=== PATIENT | male | born 1985 | race African-American/Black ===

== ENCOUNTER 2016-08-27 16:45 | Emergency (ER) | payer MEDICARE, OTHER ==
[~2016-08-27] VITALS: Ht 175.3 cm; Wt 79.4 kg
[2016-08-27 16:45] VITALS: BP 141/97
--- NOTE | 2016-08-27 17:14 | Emergency Room Report ---
History of Present Illness General Chief Complaint: Vomiting Source: Patient, EMS Present Illness HPI Patient is a 31-year-old male presented after increased of burning type abdominal pain. The patient reported having had increased nausea as well as vomiting. He was having difficulty had a keeping down food. Patient stated this began earlier in the day. The patient denied any fever. He denied any diarrhea.The patient had been given a pain pill by his girlfriend and subsequently began vomiting. Allergies: Coded Allergies: No Known Allergies (Unverified , 08/27/16) Patient History Past Medical History: see triage record Reviewed Nursing Documentation: PMH: Agreed, PSxH: Agreed Nursing Documentation-PMH Past Medical History: No Stated History Review of Systems All Other Systems: negative except mentioned in HPI Physical Exam Vital Signs Date Time Temp Pulse Resp B/P Pulse Ox O2 Delivery O2 Flow Rate FiO2 08/27/16 16:32 80 18 135/80 98 Room Air 08/27/16 16:45 97.5 Sp02 EP Interpretation: reviewed, normal General Appearance: normal inspection, well appearing, no apparent distress, alert, GCS 15, non-toxic Head: atraumatic ENT: normal ENT inspection, hearing grossly normal, normal voice Neck: normal inspection, full range of motion, supple, no bony tend Respiratory: normal inspection, lungs clear, normal breath sounds, no respiratory distress, no retraction, no wheezing Cardiovascular #1: regular rate, rhythm, no edema Gastrointestinal: normal inspection, normal bowel sounds, non tender, soft, no guarding, no hernia Genitourinary: no CVA tenderness Musculoskeletal: normal inspection, back normal, normal range of motion Neurologic: normal inspection, alert, oriented x3, responsive, twisting frame changer III-XII nml as tested, speech normal Psychiatric: normal inspection, judgement/insight normal, mood/affect normal Skin: normal inspection, normal color, no rash Medical Decision Making Diagnostic Impression: Primary Impression: Vomiting Additional Impression: Dental caries ER Course Patient presented for abdominal pain. Differential diagnoses included ischemic bowel, appendicitis, perforated viscus, abdominal aortic aneurysm, inferior myocardial infarction, viral gastroenteritis Because of complexity of patient's case laboratory testing and imaging studies were ordered.Laboratory testing was unremarkable. The patient was given IM penicillin due to the recent dental infection to his right upper molar. Patient had a benign abdominal exam. Patient appears to have vomiting secondary to opiate ingestion. The patient is advised to follow up with primary care doctor in 1-2 days. Patient is advised to return if any worsening condition or if any changes in status that are concerning. Labs Test 08/27/16 16:51 08/27/16 18:18 White Blood Count 10.9 K/UL (4.8-10.8) Red Blood Count 5.15 M/UL (4.70-6.10) Hemoglobin 14.6 G/DL (14.2-18.0) Hematocrit 45.1 % (42.0-52.0) Mean Corpuscular Volume 88 FL (80-99) Mean Corpuscular Hemoglobin 28.4 PG (27.0-31.0) Mean Corpuscular Hemoglobin Concent 32.4 G/DL (32.0-36.0) Red Cell Distribution Width 13.4 % (11.6-14.8) Platelet Count 174 K/UL (150-450) Mean Platelet Volume 7.3 FL (6.5-10.1) Neutrophils (%) (Auto) 76.9 % (45.0-75.0) Lymphocytes (%) (Auto) 17.0 % (20.0-45.0) Monocytes (%) (Auto) 4.3 % (1.0-10.0) Eosinophils (%) (Auto) 1.0 % (0.0-3.0) Basophils (%) (Auto) 0.9 % (0.0-2.0) Sodium Level 141 mEQ/L (135-145) Potassium Level 3.5 mEQ/L (3.4-4.9) Chloride Level 99 mEQ/L (98-107) Carbon Dioxide Level 25 mEQ/L (20-30) Anion Gap 17 (5-15) Blood Urea Nitrogen 11 mg/dL (7-23) Creatinine 0.9 mg/dL (0.7-1.2) Estimat Glomerular Filtration Rate > 60 mL/min (>60) Glucose Level 103 mg/dL (74-106) Calcium Level 9.8 mg/dL (8.6-10.2) Total Bilirubin 0.5 mg/dL (0.0-1.2) Aspartate Amino Transf (AST/SGOT) 16 U/L (5-40) Alanine Aminotransferase (ALT/SGPT) 35 U/L (3-41) Alkaline Phosphatase 59 U/L (40-129) Total Protein 7.5 g/dL (6.6-8.7) Albumin 4.8 g/dL (3.5-5.2) Globulin 2.7 g/dL Albumin/Globulin Ratio 1.7 (1.0-2.7) Lipase 18 U/L (< 60) Urine Color Pale yellow Urine Appearance Clear Urine pH 8 (4.5-8.0) Urine Specific [place] 1.015 (1.005-1.035) Urine Protein Negative (NEGATIVE) Urine Glucose (UA) Negative (NEGATIVE) Urine Ketones 2+ (NEGATIVE) Urine Occult Blood 1+ (NEGATIVE) Urine Nitrite Negative (NEGATIVE) Urine Bilirubin Negative (NEGATIVE) Urine Urobilinogen Normal MG/DL (0.0-1.0) Urine Leukocyte Esterase Negative (NEGATIVE) Urine RBC 0-2 /HPF (0 - 0) Urine WBC 0-2 /HPF (0 - 0) Urine Squamous Epithelial Cells None /LPF (NONE/OCC) Urine Bacteria Few /HPF (NONE) Last Vital Signs Date Time Temp Pulse Resp B/P Pulse Ox O2 Delivery O2 Flow Rate FiO2 08/27/16 16:45 97.5 69 19 141/97 100 Room Air Status: improved Disposition: HOME, SELF-CARE Condition: Stable Scripts Ondansetron (Zofran) 4 Mg Tablet 4 MG ORAL Q6H Y for Nausea & Vomiting, #30 TAB 0 Refills Prov: Crispin Qucah 08/27/16 Crispin Quach Aug 27, 2016 17:13
[2016-08-27] MEDS ORDERED: Famotidine 20 MG/ 2ML VIAL IVP ONE (17:15)
[2016-08-27 17:17] LABS: BASOPHILS % (AUTO) 0.9 % (0.0-2.0); MEAN CORPUSCULAR HEMOGLOBIN 28.4 PG (27.0-31.0); MEAN CORPUSCULAR HGB CONC 32.4 G/DL (32.0-36.0); MEAN CORPUSCULAR VOLUME 88 FL (80-99); MEAN PLATELET VOLUME 7.3 FL (6.5-10.1); MONOCYTES % (AUTO) 4.3 % (1.0-10.0); NEUTROPHILS % (AUTO) 76.9 % (45.0-75.0); PLATELET COUNT 174 K/UL (150-450); RED BLOOD COUNT 5.15 M/UL (4.70-6.10); RED CELL DISTRIBUTION WIDTH 13.4 % (11.6-14.8); WHITE BLOOD COUNT 10.9 K/UL (4.8-10.8)
[2016-08-27] MEDS ORDERED: Bicillin LA 1.2 Million Units Syr IM ONE (17:30)
[2016-08-27 17:36] LABS: ALANINE AMINOTRANSFERASE 35 U/L (3-41); ALBUMIN/GLOBULIN RATIO 1.7 (1.0-2.7); ANION GAP 17 (5-15); ASPARTATE AMINO TRANSFERASE 16 U/L (5-40); CALCIUM 9.8 mg/dL (8.6-10.2); CARBON DIOXIDE 25 mEQ/L (20-30); CHLORIDE 99 mEQ/L (98-107); CREATININE 0.9 mg/dL (0.7-1.2); GLOMERULAR FILTRATION RATE > 60 mL/min (>60); HEMOLYSIS 11; LIPASE 18 U/L (< 60); POTASSIUM 3.5 mEQ/L (3.4-4.9); SODIUM 141 mEQ/L (135-145); TOTAL PROTEIN 7.5 g/dL (6.6-8.7)
[2016-08-27 18:00] VITALS: BP 118/94
[2016-08-27] MEDS ORDERED: ZOFRAN4 MG ORAL (18:26)
[2016-08-27 18:42] LABS: APPEARANCE,URINE CLEAR; KETONES,URINE 2+ (NEGATIVE); LEUKOCYTE ESTERASE ,URINE NEGATIVE (NEGATIVE); NITRITE,URINE NEGATIVE (NEGATIVE); PH,URINE 8 (4.5-8.0); PROTEIN,URINE NEGATIVE (NEGATIVE); UROBILINOGEN,URINE NORMAL MG/DL (0.0-1.0)
[2016-08-27 18:55] LABS: BACTERIA,URINE FEW /HPF; RBC,URINE 0-2 /HPF (0 - 0); WBC,URINE 0-2 /HPF (0 - 0)
[2016-08-27 19:33] VITALS: BP 134/75
== END 2016-08-27 19:36 | disposition home or self-care (01) ==
LOC: EDBD 16:45 → EMR 17:18
DX: R11.10 Vomiting, unspecified (principal); R10.9 Unspecified abdominal pain; K02.9 Dental caries, unspecified
CPT/HCPCS: 36415; 80053; 81003; 82962; 83690; 85025; 96361; 96372; 96374; 96375; 99284; J0570; J2405; S0028; J0561

== ENCOUNTER 2017-07-12 20:35 | Emergency (ER) | payer MEDICARE, OTHER ==
[~2017-07-12] VITALS: Ht 177.8 cm; Wt 66.7 kg
[~2017-07-12 20:35] MED LIST: ZOFRAN4 MG ORAL
[2017-07-12] MEDS ORDERED: NKM (20:50)
[2017-07-12 21:00] VITALS: BP 137/83
[2017-07-12 21:19] VITALS: BP 137/83
--- NOTE | 2017-07-13 03:34 | Emergency Room Report ---
History of Present Illness General Chief Complaint: Skin Rash/Abscess Source: Patient Present Illness HPI 31-year-old male, no significant past medical history, presenting with lump to right breast/chest area. Patient states that he noticed it today. Slightly painful. No fever no chills. No shortness of breath Allergies: Coded Allergies: No Known Allergies (Unverified , 08/27/16) Patient History Past Medical History: see triage record Past Surgical History: none Pertinent Family History: none Reviewed Nursing Documentation: PMH: Agreed, PSxH: Agreed Nursing Documentation-PMH Past Medical History: No Stated History Review of Systems All Other Systems: negative except mentioned in HPI Physical Exam Vital Signs Date Time Temp Pulse Resp B/P (MAP) Pulse Ox O2 Delivery O2 Flow Rate FiO2 07/12/17 20:46 97.5 70 12 137/83 97 Room Air Sp02 EP Interpretation: reviewed, normal General Appearance: normal inspection, well appearing, no apparent distress, alert, GCS 15, non-toxic Head: normocephalic, atraumatic Eyes: bilateral eye normal inspection, bilateral eye PERRL, bilateral eye EOMI ENT: normal ENT inspection, normal pharynx, normal voice, moist mucus membranes Neck: normal inspection, full range of motion, supple Respiratory: normal inspection, lungs clear, normal breath sounds, no respiratory distress, no retraction, no wheezing, speaking full sentences, chest symmetrical Cardiovascular #1: regular rate, rhythm, normal capillary refill, other - Right breast that is superior to the nipple, mobile and squishy mass palpated, nontender, no erythema, no purulent drainage Cardiovascular #2: 2+ radial (R), 2+ radial (L) Gastrointestinal: normal inspection, non tender, soft, non-distended, no guarding Musculoskeletal: normal inspection, back normal, normal range of motion, non- tender Neurologic: normal inspection, alert, oriented x3, responsive, motor strength/ tone normal, sensory intact, normal gait, speech normal Psychiatric: normal inspection, judgement/insight normal, memory normal Skin: normal inspection, normal color, no rash, warm/dry, well hydrated, normal turgor Medical Decision Making Diagnostic Impression: Primary Impression: Swelling, mass, or lump in chest ER Course 31-year-old male with right breast lump DDX: Breast mass, cyst, very low suspicion for abscess Plan: None ER course: Patient has remained stable during ED stay. Masses nontender, does not appear to be infectious in cause, patient instructed to followup with PMD and possible outpatient surgery Disposition: Patient is to be discharged to home. Patient is instructed to follow up with their primary care doctor within 5 days. Strict return precautions discussed with patient such as fever, chills, worsening/severe pain, chest pain, SOB, nausea, vomiting, which may indicate severe illness. Patient verbalizes understanding and agrees with plan. Please note that this Emergency Department Report was dictated using [email or web address] assistant technology software, occasionally this can lead to erroneous entry secondary to interpretation by the dictation equipment Last Vital Signs Date Time Temp Pulse Resp B/P (MAP) Pulse Ox O2 Delivery O2 Flow Rate FiO2 07/12/17 21:19 97.5 12 137/83 97 Room Air 07/12/17 20:46 70 Disposition: HOME, SELF-CARE Condition: Stable Patient Instructions: Breast Cyst Additional Instructions: Please followup with your doctor within 2-3 days for recheck. Please return to the emergency room here experiencing extreme pain, redness, fever chills, chest pain shortness of breath, or purulent drainage from the site Lizzy Liriano M.D. Jul 13, 2017 03:34
== END 2017-07-12 21:19 | disposition home or self-care (01) ==
LOC: EMR 21:19
DX: R22.2 Localized swelling, mass and lump, trunk (principal)
CPT/HCPCS: 99282